=== PATIENT | female | born 1995 | race Hispanic/Latino ===

== ENCOUNTER 2022-03-17 08:34 | Inpatient (IN) | payer OTHER ==
[2022-03-17] MEDS ORDERED: LACTATED RINGERS 1,000 ML IV SCH ×2 (09:30→10:30)
[2022-03-17] MEDS ORDERED: ONDANSETRON 4 MG/2 ML INJ IV SCH (09:30)
[2022-03-17 10:28] LABS: Amphetamine Screen,Urine Negative; Benzodiazepines Screen,Urine Negative; Cocaine Screen,Urine Negative; Methadone Screen,Urine Negative; Opiate Screen,Urine Negative
[2022-03-17] MEDS ORDERED: FAMOTIDINE 20 MG/2 ML INJ IV ONE (10:30)
[2022-03-17] MEDS ORDERED: BICITRA ORAL LIQD 30ML PO SCH (10:30)
[2022-03-17] MEDS ORDERED: ceFAZolin/Water 2 GM/20 ML 2 GM/20 ML SYRINGE IV NR (10:30)
[2022-03-17] MEDS ORDERED: METOCLOPRAMIDE 10 MG/2 ML INJ IV SCH (10:30)
[2022-03-17] MEDS ORDERED: FAMOTIDINE 20 MG/2 ML INJ IV SCH (10:30)
[2022-03-17] MEDS ORDERED: METOCLOPRAMIDE 10 MG/2 ML INJ ONE (10:30)
[2022-03-17 10:37] LABS: Alanine Aminotransferase 9 units/L (7-56); Albumin 3.6 g/dL (3.9-5); Blood Urea Nitrogen 8 mg/dL (7-17); Calcium 9.1 mg/dL (8.4-10.2); Hemolysis Index 11
[2022-03-17 10:41] LABS: Cannabinoid Screen,Urine Positive
[2022-03-17 10:42] LABS: BUN/Creatinine Ratio 13
[2022-03-17 10:48] LABS: Bacteria,Urine 4+ /HPF (Negative); Mucus,Urine 1+ /HPF; Sperm,Urine 3+ /HPF (NP)
[2022-03-17 10:55] LABS: Basophils # (Auto) 0.1 K/mm3 (0.0-0.1); Basophils % (Auto) 0.6 % (0.0-1.8); Eosinophils # (Auto) 0.1 K/mm3 (0.0-0.4); Hematocrit 35.3 % (30.3-42.9); Hemoglobin 11.8 gm/dl (10.1-14.3); Lymphocytes # (Auto) 2.5 K/mm3 (1.2-5.4); Lymphocytes % (Auto) 19.2 % (13.4-35.0); Mean Corpuscular HGB Conc 34 % (30-34); Mean Corpuscular Volume 94 fl (79-97); Monocytes # (Auto) 0.7 K/mm3 (0.0-0.8); Monocytes % (Auto) 5.9 % (0.0-7.3); Platelet Count 229 K/mm3 (140-440); Red Blood Count 3.76 M/mm3 (3.65-5.03); Red Cell Distribution Width 13.9 % (13.2-15.2)
[2022-03-17] MEDS ORDERED: ePHEDrine SULFATE 50 MG/1 ML INJ ONE (10:58)
[2022-03-17] MEDS ORDERED: OXYTOCIN DRIP 30 UNITS/500 ML BAG IV SCH ×2 (11:00→17:00)
--- NOTE | 2022-03-17 11:06 | Ultrasound Report ---
US OB follow up, US OB BPP wo non-stress INDICATION / CLINICAL INFORMATION: rule out abruption, WALLACE, EFW. Clinical gestational age: 38 weeks 5 days COMPARISON: None available. FINDINGS: Single live intrauterine in cephalic presentation. MEASUREMENTS: - Biparietal Diameter = 8.9 cm = 36 weeks 1 day - Head Circumference = 32.4 cm = 36 weeks 5 days - Abdominal Circumference = 31.2 cm = 35 weeks 1 day - Femur Length = 6.1 cm = 31 weeks 3 days - Estimated Weight (in grams, if calculated): 2 4-0 - Heart Rate (beats per minute): 141 Ultrasound gestational age equals 34 weeks 6 days. BREATHING MOVEMENT = 2 GROSS BODY MOVEMENT = 2 TONE = 2 QUALITATIVE AMNIOTIC FLUID VOLUME = 2 TOTAL BIOPHYSICAL SCORE = 8/8 AMNIOTIC FLUID INDEX (cm) = 19.8 cm. PLACENTA: Anterior placenta is free of the os. No placental lifting or separation. No evidence of ret roplacental hematoma. Technologist reports fluid behind the placenta. However, there is Doppler flow in this region, most consistent with prominent subplacental space. IMPRESSION: 1. Single live intrauterine with ultrasound gestational age of 34 weeks and 6 days. Clinica l gestational age is 38 weeks and 5 days. 2. biophysical profile = 8/8. Amniotic fluid index is within normal limits, measuring 19.8 cm. 3. No evidence of placental abruption. Signer Name: Stone Medrano MD Signed: 03/17/2022 11:02 AM Workstation Name: [id number]
[2022-03-17 11:12] LABS: Color,Urine Yellow (Yellow)
[2022-03-17] MEDS ORDERED: SODIUM CHLORIDE 0.9% IRR 1,500 ML BOTTLE IR ONE (13:25)
[2022-03-17] MEDS ORDERED: WATER FOR IRRIG STERILE 1,500 ML BOTTLE IR ONE (13:25)
[2022-03-17] MEDS ORDERED: LIDOCAINE (2%) 20 MG/1 ML VIAL 20 ML MDV INFILTRATI NR (13:34)
[2022-03-17] MEDS ORDERED: BUPIVACAINE/PF (0.5%) 5 MG/1 ML 30 ML VIAL INFILTRATI ONE (14:36)
[2022-03-17] MEDS ORDERED: ONDANSETRON 4 MG/2 ML INJ ONE (14:36)
[2022-03-17] MEDS ORDERED: LACTATED RINGERS 1,000 ML ONE (14:36)
[2022-03-17] MEDS ORDERED: PHENYLEPHRINE/NS 1,000 MCG/10 ML SYRINGE (OR USE) IV ONE (14:36)
[2022-03-17] MEDS ORDERED: miSOPROStol 200 MCG TAB ONE (14:42)
[2022-03-17] MEDS ORDERED: NalbUPHINE 10 MG/1 ML INJ IV PRN (15:00)
[2022-03-17] MEDS ORDERED: ACETAMINOPHEN 325 MG TAB PO PRN ×2 (15:00→17:00)
[2022-03-17] MEDS ORDERED: fentaNYL 100 MCG/2 ML INJ IV PRN (15:00)
[2022-03-17] MEDS ORDERED: miSOPROStol 200 MCG TAB PR NR (16:00)
--- NOTE | 2022-03-17 16:13 | History and Physical Report ---
History of Present Illness Date of examination: 03/17/22 Date of admission: 03/17/22 08:35 Chief complaint: severe pelvic pain and vomiting History of present illness: at 36wks by pt report of EDC 04/14/22. care with Dr. Chung. pt came to triage c/o vomiting per nurse report. When I saw the pt she was complaining of intermittent abd pain, which she was not aware how a ctx feels. Pt admits to movement, denies LOF or vag bleed or headache. Past History Past Medical History: no pertinent history Past Surgical History: no surgical history - Obstetrical History Expected Date of Delivery: 04/14/22 Actual Gestation: 36 Week(s) 0 Day(s) : 1 Number of Living Children: 0 Medications and Allergies Allergies Allergy/AdvReac Type Severity Reaction Status Date / Time No Known Allergies Allergy Verified 03/17/22 10:13 Home Medications Medication Instructions Recorded Confirmed Last Taken Type Ibuprofen [Motrin] 800 mg PO Q8HR PRN 21 Days #40 03/17/22 Unknown Rx tablet oxyCODONE /ACETAMINOPHEN [Percocet 2 tab PO Q4HR PRN 21 Days #30 tab 03/17/22 Unknown Rx 5/325] Active Meds: Active Medications Acetaminophen (Acetaminophen 325 Mg Tab) 650 mg PO Q4H PRN PRN Reason: Pain, Mild (1-3) Citric Acid/Sodium Citrate (Bicitra Oral Liqd 30ml) 30 ml PO ONCE@1030 VIN Stop: 03/17/22 18:00 Last Admin: 03/17/22 10:32 Dose: 30 ml Famotidine (Famotidine 20 Mg/2 Ml Inj) 20 mg IV ONCE@1030 VIN Stop: 03/17/22 18:00 Last Admin: 03/17/22 10:32 Dose: 20 mg Fentanyl (Fentanyl 100 Mcg/2 Ml Inj) 100 mcg IV Q2H PRN PRN Reason: Pain,Severe (7-10) LABOR PAIN Lactated Ringer's (Lactated Ringers) 1,000 mls @ 2,250 mls/hr IV PREOP VIN Stop: 03/18/22 10:57 Last Admin: 03/17/22 10:31 Dose: 2,250 mls/hr Oxytocin/Sodium Chloride (Pitocin/Ns 30 Unit/500ml) 30 units in 500 mls @ 0 mls/hr IV TITR VIN; Protocol Cefazolin Sodium (Ancef/Sterile Water 2 Gm/20 Ml) 2 gm in 20 mls @ 80 mls/hr IV PREOP NR; Protocol Stop: 03/17/22 18:00 Lactated Ringer's (Lactated Ringers) 1,000 mls @ 125 mls/hr IV DIRECT VIN Lidocaine (Lidocaine (2%) 20 Mg/1 Ml Vial 20 Ml Mdv) 20 ml INFILTRATI ONCE NR Stop: 03/17/22 23:00 Metoclopramide HCl (Metoclopramide 10 Mg/2 Ml Inj) 10 mg IV ONCE@1030 VIN Stop: 03/17/22 18:00 Last Admin: 03/17/22 10:32 Dose: 10 mg Misoprostol (Misoprostol 200 Mcg Tab) 800 mcg AL ONCE NR Stop: 03/17/22 23:00 Nalbuphine HCl (Nalbuphine 10 Mg/1 Ml Inj) 10 mg IV Q2H PRN PRN Reason: Pain, Moderate (4-6) Review of Systems All systems: negative (pain to abdomen) - Vital Signs Vital signs: Vital Signs Pulse BP 74 127/89 03/17/22 09:16 03/17/22 09:16 Temp Pulse Resp BP Pulse Ox 97.7 F 98 H 16 99/52 93 03/17/22 14:38 03/17/22 15:30 03/17/22 15:30 03/17/22 15:30 03/17/22 15:30 - Physical Exam Breasts: Positive: deferred Cardiovascular: Regular rate Lungs: Positive: Normal air movement Abdomen: Positive: tenderness Genitourinary (Female): Positive: normal external genitalia Vulva: both: normal Vagina: Positive: normal moisture Uterus: Positive: normal size Extremities: Positive: normal - Obstetrical FHR: category 1 Uterine Contraction Monitor Mode: External Uterine Contraction Pattern: Regular Uterine Contraction Intensity: Strong/Firm Results Result Diagrams: 03/17/22 09:49 03/17/22 09:54 Abnormal lab results 03/17/22 03/17/22 03/17/22 Range/Units 09:47 09:49 09:54 WBC 12.7 H (4.5-11.0) K/mm3 Seg Neutrophils % 73.3 H (40.0-70.0) % Seg Neutrophils # 9.3 H (1.8-7.7) K/mm3 Potassium 3.5 L (3.6-5.0) mmol/L Carbon Dioxide 19 L (22-30) mmol/L Glucose 120 H (65-100) mg/dL Lactate Dehydrogenase (91-180) units/L Albumin 3.6 L (3.9-5) g/dL Urine WBC (Auto) 15.0 H (0.0-6.0) /HPF U Epithel Cells (Auto) 51.0 H (0-13.0) /HPF 03/17/22 Range/Units 09:55 WBC (4.5-11.0) K/mm3 Seg Neutrophils % (40.0-70.0) % Seg Neutrophils # (1.8-7.7) K/mm3 Potassium (3.6-5.0) mmol/L Carbon Dioxide (22-30) mmol/L Glucose (65-100) mg/dL Lactate Dehydrogenase 203 H (91-180) units/L Albumin (3.9-5) g/dL Urine WBC (Auto) (0.0-6.0) /HPF U Epithel Cells (Auto) (0-13.0) /HPF All other labs normal. Assessment and Plan Walk in patient with no records with signs of possible abruption 1. U/S for dates and abruption seen; done by [facility] today 2. Consents obtained and NICU and anesthesiologist team notified 3. Patient to be taken for emergent c/section, consents obtained with risks, benefits and alternatives 4. Request for prenatals from Dr. Chung's clinic per pt report; same later obtained show IUGR and labs wnl. all questions encouraged and answered
--- NOTE | 2022-03-17 16:18 | Procedure Note ---
OB Delivery Note - Delivery Date of Delivery: 03/17/22 Surgeon: ZOFIA SORTO Estimated blood loss: other (1157cc by QBL) - Section Preop diagnosis: nonreassuring FHR tracing, other (abruption on u/sound) Postop diagnosis: same section procedure: primary low transverse Disposition: floor Complications: none Narrative: Date: 03/17/22 Surgeon: Zofia Sorto MD Preop Dx: IUP at 36wk with abruption Postop Dx: same Procedure : Primary low transverse section Anesthesia: Spinal Intake: 1500cc Output: 200cc clear urine EBL: 1157cc by QBL per nurse After the risks, benefits and alternatives of procedure discussed, patient signed consents and was taken to the operating room. Pt was given spinal anesthesia. After same was adequate, patient was prepped and draped in the usual sterile fashion. Conte catheter in place and draining clear urine. Pt was given prophylactic antibiotic per protocol and time out was done Pfannenstiel skin incision was made and taken sharply to the fascia and the incision extended using electrocautery. Superior edge of the fascia was grasped with jackie clamps and the rectus muscle using blunt dissection and also using electrocautery. Lower portion of the fascia also sharply. Rectus muscle in the midline and Peritoneal cavity entered bluntly and extended with good visualization of the bladder. Jayden retractor placed without difficulty. The bladder flap was created sharply using metzenbaum scissors. Lower uterine segment then entered transversely and amniotic sac entered using allys clamps. Amniotic fluid with blood tinged and copious amount. Uterine incision extended using bandage scissors. delivered, bulb suctioned, cord clamped and baby handed to waiting pediatricians. Anterior placenta with partial separation approximately 30% noted and it was delivered completely and uterine cavity cleared of all clots and debri. The uterus was initially not exteriorized and closed in 2 layers using 0-monocryl suture in a running locked fashion and then an additional layer of imbrication suture. After repair completed, the uterus was exteriorized to remove any excess blood in the posterior culdesac. Surgicel placed along anterior uterine incision. Excellent hemostasis noted. The gutters were cleared of clots and debri and anterior peritoneum closed using 3-0 vicryl suture and rectus muscle reapproximated using 0-vicryl suture. Rectus fascia closed with 0-vicryl suture in a running fashion and subcutaneous tissue copiously irrigated with normal saline and re-approximated using 3-0 monocryl suture. Excellent hemostasis remains. The skin was closed with 4-0 monocryl suture and steristrips placed with pressure dressing. Sponge, lap, instrument and needle counts x2 were normal. Patient tolerated the procedure well and was taken to recovery room stable. Nurse instructed that CBC to be done in recovery prior to going to Findings: Viable female infant, APGARS 8/9 and weight 2050g. Normal uterus, tubes and ovaries. - Infant A at 1 minute: 8 at 5 minutes: 9 Gender: Female (wt 2050g)
[2022-03-17] MEDS: LACTATED RINGERS 1,000 ML IV SCH (16:41)
[2022-03-17] MEDS ORDERED: SIMETHICONE 80 MG CHEW TAB PO PRN (17:00)
[2022-03-17] MEDS ORDERED: PROMETHAZINE 25 MG RECT SUPP PR PRN (17:00)
[2022-03-17] MEDS ORDERED: HYDROCORTISONE 25 MG RECTAL SUPP PR PRN (17:00)
[2022-03-17] MEDS ORDERED: LANOLIN/ZINC/DIMETHICONE (LANSINOH) 7 GM TP PRN (17:00)
[2022-03-17] MEDS ORDERED: IBUPROFEN 800 MG TAB PO PRN (17:00)
[2022-03-17] MEDS ORDERED: ONDANSETRON 4 MG/2 ML INJ IV PRN (17:00)
[2022-03-17] MEDS ORDERED: WITCH HAZEL/ GLYCERIN PAD TP PRN (17:00)
[2022-03-17] MEDS ORDERED: NALOXONE 0.4 MG/1 ML INJ IV PRN (17:00)
[2022-03-17] MEDS: MORPHINE 4 MG/1 ML INJ IV PRN ×2 (18:12→21:59)
[2022-03-17] MEDS ORDERED: MAGNESIUM HYDROXIDE (MOM) ORAL LIQD UDC PO PRN (22:00)
[2022-03-17] MEDS ORDERED: SENNOSIDES 8.6 MG TAB PO PRN (22:00)
[2022-03-17 22:41] LABS: Basophils % (Auto) 0.2 % (0.0-1.8); Eosinophils % (Auto) 0.1 % (0.0-4.3); Hematocrit 29.9 % (30.3-42.9); Hemoglobin 9.8 gm/dl (10.1-14.3); Lymphocytes # (Auto) 2.5 K/mm3 (1.2-5.4); Lymphocytes % (Auto) 14.1 % (13.4-35.0); Mean Corpuscular HGB Conc 33 % (30-34); Mean Corpuscular Volume 94 fl (79-97); Monocytes # (Auto) 1.4 K/mm3 (0.0-0.8); Monocytes % (Auto) 7.9 % (0.0-7.3); Platelet Count 185 K/mm3 (140-440); Red Blood Count 3.17 M/mm3 (3.65-5.03); Red Cell Distribution Width 13.5 % (13.2-15.2)
[2022-03-18] MEDS ORDERED: MORPHINE 4 MG/1 ML INJ IV PRN (00:19)
[2022-03-18] MEDS ORDERED: PROMETHAZINE 25 MG TAB PO PRN (00:19)
[2022-03-18] MEDS ORDERED: HYDROmorphone 1 MG/1 ML INJ IV PRN ×2 (00:19)
[2022-03-18] MEDS ORDERED: ONDANSETRON 4 MG/2 ML INJ IV PRN (00:19)
[2022-03-18] MEDS ORDERED: NALOXONE 0.4 MG/1 ML INJ IV PRN (00:19)
[2022-03-18] MEDS ORDERED: PROMETHAZINE 25 MG RECT SUPP PR PRN (00:19)
--- NOTE | 2022-03-18 00:21 | Anesthesia Day of Surgery ---
Anesthesia Day of Surgery - Day of Surgery Patient Examined: Yes Patient H&P Reviewed: Yes Patient is NPO: Yes Beta Blockers: No Cardiac Clearance: No Pulmonary Clearance: No Anand's Test: N/A
--- NOTE | 2022-03-18 00:21 | Anesthesia Consultation ---
Anesthesia Consult and Med Hx Date of service: 03/18/22 - Airway Anesthetic Teeth Evaluation: Good ROM Head & Neck: Adequate Mental/Hyoid Distance: Adequate Mallampati Class: Class II Intubation Access Assessment: Probably Good - Pulmonary Exam CTA: Yes - Cardiac Exam Cardiac Exam: RRR - Pre-Operative Health Status ASA Pre-Surgery Classification: ASA2 Proposed Anesthetic Plan: Spinal Nerve Block: Noah Tap - Pulmonary Hx Smoking: No Hx Asthma: No Hx Respiratory Symptoms: No SOB: No COPD: No Home Oxygen Therapy: No Hx Pneumonia: No Hx Sleep Apnea: No - Cardiovascular System Hx Hypertension: No Hx Coronary Artery Disease: No Hx Heart Attack/AMI: No Hx Angina: No Hx Percutaneous Transluminal Coronary Angioplasty (PTCA): No Hx Cardia Arrhythmia: No Hx Pacemaker: No Hx Internal Defibrillator: No Hx Valvular Heart Disease: No Hx Heart Murmur: No Hx Peripheral Vascular Disease: No - Central Nervous System Hx Neuromuscular Disorder: No Hx Seizures: No CVA: No Hx Back Pain: No Hx Psychiatric Problems: No - Gastrointestinal Hx Ulcer: No Hx Gastroesophageal Reflux Disease: No - Endocrine Hx Renal Disease: Yes ("80% kidney fx on one kidney and 20% on right,UTI last) Hx End Stage Renal Disease: No Hx Cirrhosis: No Hx Liver Disease: No Hx Insulin Dependent Diabetes: No Hx Non-Insulin Dependent Diabetes: No Hx Thyroid Disease: No Hx Hypothyroidism: No Hx Hyperthyroidism: No - Hematic Hx Anemia: No Hx Sickle Cell Disease: No - Other Systems Hx Alcohol Use: No Hx Substance Use: No Hx Cancer: No Hx Obesity: No
--- NOTE | 2022-03-18 00:22 | Progress Note ---
Spinal Anesthesia Block - Spinal Anesthesia Block Start Time: 12:39 Stop Time: 12:45 Performed by:: JULIANN SCHOFIELD Procedure: The patient was placed in a sitting position on the OR table and monitors applied. A timeout was performed immediately prior to the start of the procedure. The patient was Prepped and draped in a sterile fashion and the skin was localized with 3 mL 1% lidocaine at L[4]-L[5] interspace. An introducer was placed into the back between L4-L5 and a 25g spinal needle was advanced into the intrathecal space until clear, free flowing CSF was observed. 1.8cc of 0.75% hyperbaric bupivacaine + 0.5mcg Precedex was injected into the intrathecal space and the spinal needle was removed. The patient tolerated the procedure well and there were no immediate complications noted.
[2022-03-18] MEDS ORDERED: fentaNYL-BUPIV 2 MCG/ML-0.125% 200 MCG/100 ML BAG EPIDURAL SCH (01:00)
[2022-03-18] MEDS: oxyCODONE /ACETAMINOPHEN 5-325MG TAB PO PRN ×5 (01:06→21:01)
[2022-03-18] MEDS: LACTATED RINGERS 1,000 ML IV SCH (01:08)
[2022-03-18 08:58] LABS: Basophils # (Auto) 0.1 K/mm3 (0.0-0.1); Basophils % (Auto) 0.4 % (0.0-1.8); Eosinophils # (Auto) 0.1 K/mm3 (0.0-0.4); Eosinophils % (Auto) 0.4 % (0.0-4.3); Hematocrit 32.5 % (30.3-42.9); Hemoglobin 10.8 gm/dl (10.1-14.3); Lymphocytes % (Auto) 12.7 % (13.4-35.0); Mean Corpuscular HGB Conc 33 % (30-34); Mean Corpuscular Volume 94 fl (79-97); Monocytes # (Auto) 0.9 K/mm3 (0.0-0.8); Monocytes % (Auto) 5.7 % (0.0-7.3); Platelet Count 209 K/mm3 (140-440); Red Blood Count 3.45 M/mm3 (3.65-5.03); Red Cell Distribution Width 13.9 % (13.2-15.2)
[2022-03-18] MEDS: FERROUS SULFATE 325 MG TAB PO SCH (10:37)
--- NOTE | 2022-03-18 12:43 | Progress Note ---
Assessment and Plan A: POD #1 Negative Flatus P: Follow Routine Orders Encourage Increased Ambulation Subjective - Subjective Date of service: 03/18/22 Patient reports: appetite normal, voiding normally, pain well controlled, ambulating normally [place]: doing well, bottle feeding Objective - Vital Signs Latest vital signs: Vital Signs Temp Pulse Resp BP Pulse Ox Pulse Ox 03/18/22 09:46 98 03/18/22 05:27 20 03/18/22 05:09 97.7 F 67 18 117/83 98 03/18/22 01:06 20 03/18/22 00:59 98.2 F 74 18 109/69 99 03/17/22 22:48 98 03/17/22 21:59 20 03/17/22 21:44 98.3 F 80 20 114/77 99 03/17/22 18:12 16 03/17/22 17:05 100 03/17/22 16:21 97.9 F 92 H 20 108/69 97 03/17/22 15:45 98 H 16 99/52 93 03/17/22 15:30 98 H 16 99/52 93 03/17/22 15:15 99 H 16 101/72 93 03/17/22 15:00 94 H 20 100/91 100 03/17/22 14:50 85 81/43 100 03/17/22 14:45 85 81/43 100 03/17/22 14:38 97.7 F 90 16 91/50 Intake and Output 03/17/22 03/18/22 03/18/22 22:59 06:59 14:59 Intake Total 540 1460 Output Total 1050 650 Balance -510 810 Intake: IV 300 1100 Lactated Ringers 1,000 ml 1000 @ 125 mls/hr IV DIRECT VIN Rx#:[id number] ceFAZolin 2 GM In NaCl 0. 100 9% 100 ml @ 200 mls/hr IV Q8H VIN Rx#:[id number] Oral 120 120 Intake, Free Water 120 240 Output: Urine 1050 650 Indwelling Catheter 900 250 Void 400 Other: Total, Intake Amount 120 120 Total, Output Amount 900 400 Estimated Blood Loss 1,157 - Exam Breasts: Present: normal Cardiovascular: Present: Regular rate Lungs: Present: Clear to auscultation, Normal air movement Abdomen: Present: normal appearance, soft, normal bowel sounds Uterus: Present: normal, firm, fundal height below umbilicus Extremities: Present: normal Incision: Present: dry, dressed - Labs Labs: Abnormal lab results 03/17/22 03/18/22 Range/Units 22:11 08:21 WBC 17.8 H 15.9 H (4.5-11.0) K/mm3 RBC 3.17 L 3.45 L (3.65-5.03) M/mm3 Hgb 9.8 L (10.1-14.3) gm/dl Hct 29.9 L (30.3-42.9) % Lymph % (Auto) 12.7 L (13.4-35.0) % [place] % (Auto) 7.9 H (0.0-7.3) % [place] # (Auto) 1.4 H 0.9 H (0.0-0.8) K/mm3 Seg Neutrophils % 77.7 H 80.8 H (40.0-70.0) % Seg Neutrophils # 13.8 H 12.8 H (1.8-7.7) K/mm3
--- NOTE | 2022-03-18 13:13 | Post Anesthesia Evaluation ---
- Post Anesthesia Evaluation Patient Participated: Yes Airway Patent: Yes Stable Respiratory Function: Yes Nausea/Vomiting: No Temp > 96.8F: Yes Pain Manageable: Yes Adequeate Hydration: Yes Anesthesia Complications: No Block Receding Appropriately: Yes Patient on Ventilator: No
[2022-03-19] MEDS: oxyCODONE /ACETAMINOPHEN 5-325MG TAB PO PRN ×2 (05:03→12:31)
--- NOTE | 2022-03-19 11:41 | Discharge Summary ---
Providers - Providers Date of Admission: 03/17/22 08:35 Date of discharge: 03/19/22 Attending physician: RISA SORTO 03/17/22 16:54 Consult to Case Management [CONS] Routine Services Needed at Discharge: Other Notified:: after hours Phone number called:: [phone] Additional Physician Instructions: Mom positive for THC Primary care physician: RISA SORTO Hospitalization Reason for admission: other (ABDOMINAL PAIN ABRUPTION) Delivery: (PRIMARY) Procedure: section Episiotomy: none Laceration: none Incision: normal, dry, intact Other procedures: none complications: none Discharge diagnosis: IUP at term delivered [place] baby: female (NICU) Condition at discharge: Good Disposition: 01 HOME / SELF CARE / HOMELESS Plan - Discharge Medications Prescriptions: Ferrous Sulfate [Feosol 325 MG tab] 325 mg PO QDAY #30 tablet Ibuprofen [Motrin] 800 mg PO Q8HR PRN 21 Days #40 tablet PRN Reason: Pain, Moderate (4-6) oxyCODONE /ACETAMINOPHEN [Percocet 5/325] 2 tab PO Q4HR PRN 21 Days #30 tab PRN Reason: Pain , Severe (7-10) - Provider Discharge Summary Activity: no sex for 6 weeks, no heavy lifting 4 weeks, no strenuous exercise Diet: routine Instructions: routine Additional instructions: [] Smoking cessation referral if applicable(refer to patient education folder for contact #) [] Refer to [facility]'s [facility] Booklet Call your doctor immediately for: * Fever > 100.5 * Heavy vaginal bleeding ( >1 pad per hour) * Severe persistent headache * Shortness of breath * Reddened, hot, painful area to leg or breast * Drainage or odor from incision. * Keep incision clean and dry at all times and follow doctor's instructions regarding bathing/showering - Follow up plan
[2022-03-19] MEDS: FERROUS SULFATE 325 MG TAB PO SCH (14:46)
[2022-03-19 15:09] VITALS: BP 130/75
== END 2022-03-19 15:00 | disposition home or self-care (01) | DRG 765 ==
LOC: TRG 08:34 → APU 08:35 → TRG 13:43 → OB 16:19
PROVIDERS: ADMIT Obstetrics & Gynecology; ATTEND Obstetrics & Gynecology
PROC: 10D00Z1 Extraction of Products of Conception, Low, Open Approach (ICD-10-PCS; principal; 2022-03-17)
DX: O76 Abnormality in fetal heart rate and rhythm complicating labor and delivery (principal); O45.93 Premature separation of placenta, unspecified, third trimester; Z37.0 Single live birth; Z20.822 Contact with and (suspected) exposure to COVID-19; Z3A.36 36 weeks gestation of pregnancy
CPT/HCPCS: 36415; 76816; 76819; 80053; 80307; 81001; 82140; 82150; 83615; 83690; 85025; 86850; 86900; 86901; 87086; 88307; G0378; J3490; J0690; J2270; J2370; J2405; J2765; J7120; Q0169; U0003